=== PATIENT | male | born 1985 | race Two or more races ===

== ENCOUNTER 2023-03-20 18:01 | Emergency (ER) | payer OTHER ==
[~2023-03-20] VITALS: Ht 182.9 cm; Wt 75.0 kg
[2023-03-20 18:36] LABS: Basophils # (auto) 0.1 10 ^3/uL (0-0.2); Basophils % (auto) 0.8 % (0.0-2.0); Eosinophils # (auto) 0.2 10 ^3/uL (0-0.8); Eosinophils % (auto) 2.6 % (0.0-7.0); Hematocrit 41.8 % (41.0-53.0); Hemoglobin 14.4 g/dL (13.5-17.5); Lymphocytes # (auto) 1.7 10 ^3/uL (0.4-5.4); Lymphocytes % (auto) 27.2 % (10.0-50.0); Mean Corpuscular Hemoglobin 31.3 pg (28.0-32.0); Mean Corpuscular Hgb Conc. 34.5 g/dL (32.0-36.0); Mean Corpuscular Volume 90.9 fL (80.0-100.0); Monocytes # (auto) 0.5 10 ^3/uL (0-1.3); Monocytes % (auto) 7.9 % (0.0-12.0); Neutrophils # (auto) 3.9 10 ^3/uL (1.6-8.6); Neutrophils % (auto) 61.5 % (37.0-80.0); Nucleated Red Blood Cells % 0.1 %; Red Cell Distribution Width 13.1 % (11.8-14.3); White Blood Cell 6.4 10^3/uL (4.4-10.8)
[2023-03-20 18:45] LABS: Albumin 4.2 g/dL (3.4-5.0); Calcium 8.5 mg/dL (8.5-10.1)
[2023-03-20 18:49] LABS: BUN/Creatinine Ratio 9.2 (10.0-20.0); Bilirubin, Total 0.4 mg/dL (0.2-1.0); Total Protein 7.1 g/dL (6.4-8.2)
[2023-03-20 20:31] LABS: INR 1.02 (0.9-1.15); Partial Thromboplastin Time 31.1 SEC (24.5-34.5); Prothrombin Time 10.7 sec (9.3-11.8)
[2023-03-20 23:31] VITALS: TEMP 98.2
[2023-03-20 23:51] VITALS: BP 138/85; PULSE 62; RESP 16; O2SAT 100
[2023-03-21] MEDS ORDERED: cloNIDine HCL 0.1 MG TAB PO ONE
== END 2023-03-21 01:29 | disposition left against medical advice (07) ==
LOC: ER 18:01
DX: R07.89 Other chest pain (principal); R10.9 Unspecified abdominal pain
CPT/HCPCS: 36415; 71045; 71250; 74176; 80053; 83735; 84484; 85025; 85379; 85610; 85730; 93005